=== PATIENT | male | born 1945 | race Caucasian/White ===

== ENCOUNTER 2017-10-28 09:47 | Day surgery (SDC) | payer OTHER ==
--- NOTE | 2017-10-28 10:22 | PDHPUP ---
History & Physical Update H&P update statement: This history and physical update is based on an assessment of the patient which was completed after admission or registration (within 24 hours), but prior to the surgery/procedure. H&P update: no change in patient's condition since H&P completed
[2017-10-28] MEDS ORDERED: levOFLOXACIN 500 MG/DEXTROSE 100 ML IV ONE (10:57)
[2017-10-28] MEDS ORDERED: LR 1,000 ML IV ONE (11:14)
--- NOTE | 2017-10-28 11:30 | PDANEPAE ---
ANE History of Present Illness green light laser ANE Past Medical History - Cardiovascular History Hx Hypertension: No Hx Arrhythmias: Yes Hx Coronary Artery / Peripheral Vascular Disease: Yes Hx CHF / Valvular Disease: No Hx Palpitations: No Cardiovascular History Comment: Atrial fib, bradycardia, aortic aneurysm, hyperlipidemia - Pulmonary History Hx COPD: No Hx Asthma/Reactive Airway Disease: No Hx Recent Upper Respiratory Infection: No Hx Oxygen in Use at Home: Yes O2 in Use at Home (L/minute): 2L/NC Hx Sleep Apnea: Yes Sleep Apnea Screening Result - Last Documented: Positive Pulmonary History Comment: Sleep Hypoxia, - Neurologic History Hx Cerebrovascular Accident: No Hx Seizures: No Hx Dementia: No - Endocrine History Hx Diabetes: No Endocrine History Comment: thyroid Bx 2010-benign - Renal History Hx Renal Disorders: Yes Renal History Comment: BPH. UTI 08/2017 - Liver History Hx Hepatic Disorders: No - Neurological & Psychiatric Hx Hx Neurological and Psychiatric Disorders: No - Cancer History Hx Cancer: Yes Cancer History Comment: basel carcinoma - Congenital Disorder History Hx Congenital Disorders: No - GI History Hx Gastrointestinal Disorders: No Gastrointestinal History Comment: C-diff 08/2017 - Chronic Pain History Chronic Pain: No - Surgical History Prior Surgeries: angiogram. pacemaker 2014. sinus surgery. 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[email or web address] Pacemaker Model: [id number] Date Pacemaker Last Checked: 09/14/2017 ANE Patient History - Allergies Allergies/Adverse Reactions: clindamycin Allergy (Verified 01/24/15 07:58) Lincosamids Allergy (Uncoded 01/24/15 07:59) - Home Medications Home Medications: Crestor 10 mg 10/05/17 [Last Taken Unknown] Eliquis 5 mg 10/05/17 [Last Taken Unknown] Finasteride 5 mg 10/05/17 [Last Taken Unknown] - NPO status NPO Since - Liquids (Date): 10/27/17 NPO Since - Liquids (Time): 23:00 NPO Since - Solids (Date): 10/27/17 NPO Since - Solids (Time): 22:00 - Anes Hx Anes Hx: no prior problems - Smoking Hx Smoking Status: Never smoked - Alcohol Use Alcohol Use: Rarely - Family Anes Hx Family Anes Hx: none Family Hx Anesthesia Complications: none ANE Labs/Vital Signs - Vital Signs Blood Pressure: 117/77 Heart Rate: 73 Respiratory Rate: 14 O2 Sat (%): 93 Height: 177.8 cm Weight: 85.275 kg ANE Physical Exam - Airway Neck exam: FROM Mallampati Score: Class 2 Mouth exam: normal dental/mouth exam - Pulmonary Pulmonary: no respiratory distress, clear to auscultation - Cardiovascular Cardiovascular: regular rate and rhythym, no murmur, rub, or gallop - ASA Status ASA Status: III ANE Anesthesia Plan Anesthesia Plan: GA w LMA
[2017-10-28] MEDS ORDERED: PROPOFOL 200 MG/20 ML VIAL ONE (11:51)
[2017-10-28] MEDS ORDERED: fentaNYL 100 MCG/2 ML INJ ONE ×3 (11:51→14:13)
[2017-10-28] MEDS ORDERED: LIDOCAINE 2% 100 MG/5 ML SYR ONE (11:53)
[2017-10-28] MEDS ORDERED: PHENYLEPHRINE HCL 100 MCG/ML SYR ONE (13:00)
[2017-10-28] MEDS ORDERED: ONDANSETRON 4 MG/2 ML VIAL IVP PRN (13:34)
[2017-10-28] MEDS ORDERED: NALOXONE HCL 0.4 MG/ML INJ IVP PRN (13:34)
[2017-10-28] MEDS ORDERED: ACETAMINOPHEN 500 MG TAB PO PRN (13:34)
--- NOTE | 2017-10-28 13:34 | POSTANESTH ---
Post Anesthetic Evaluation Cardiovascular Status: Normal, Stable, Similar to Pre-Op Cond Respiratory Status: Normal, Stable, Similar to Pre-op Cond. Level of Consciousness/Mental Status: Can Participate in Eval, Alert and Oriented Pain Control: Adequate, Prn Tx Ordered Nausea/Vomiting Control: Adequate, Prn Tx Ordered Complications Possibly Related to Anesthesia: None Noted
--- NOTE | 2017-10-28 13:39 | POSTOPPROG ---
Post Op Note Date of Operation: 10/28/17 Surgeon: Steph Garcia (# [id number]) Anesthesia: LMA Pre-op Diagnosis: BPH w/ obstruction Post-op Diagnosis: BPH w/ obstruction Procedure: Greenlight PVP Findings: See op note Inf/Abcess present in the surg proc area at time of surgery?: No EBL: Minimal Complications: None Specimen(s): None Text Box - Additional Text Additional Text: LASING TIME - 32 mins 24 sec TOTAL ENERGY USED - 184,514 joules
[2017-10-28] MEDS: fentaNYL 100 MCG/2 ML INJ IVP PRN ×4 (13:43→14:14)
[2017-10-28 13:56] VITALS: PULSE 66; TEMP 97.9
--- NOTE | 2017-10-28 14:08 | GOP ---
[f rep st] OPERATIVE REPORT DATE OF OPERATION: 10/28/2017 SURGEON: Steph Garcia MD ANESTHESIA: Laryngeal mask. PREOPERATIVE DIAGNOSIS: Benign prostatic hypertrophy with urinary obstruction. POSTOPERATIVE DIAGNOSIS: Benign prostatic hypertrophy with urinary obstruction. PROCEDURE PERFORMED: Photovaporization of prostate. FINDINGS: BPH with obstruction. LASING TIME: To be completed, number of minutes. TOTAL ENERGY USED: To be completed, number of joules. SPECIMENS: None. ESTIMATED BLOOD LOSS: Minimal. INDICATIONS: This gentleman has a longstanding history of urinary tract symptoms that are refractory to medical therapy. He presents for operative management at this time. The indications for the pro cedures as well as potential risks and complications were discussed with the patient preoperatively. He appeared to understand, his questions were answered, and he wished to proceed. Written informed surgical consent was thereafter obtained. DESCRIPTION OF PROCEDURE: The patient was brought to the operating room, administered laryngeal mask anesthesia. He was carefully placed in the dorsal lithotomy position on the cystoscopic table. The genital area was sterilely prepped with Betadine scrub and paint, then draped in the usual sterile f ashion. It should be mentioned that with this patient, precautions were taken due to recent Clostrid ium difficile infection. I began the procedure with a 30-degree lens, using the GreenLight XPS Laser bridge and a 26-[place] sh eath. Anterior urethra was gently dilated with Adela sounds up to 28-[place] before inserting the instruments. The remainder of the anterior urethra was unremarkable. Posterior urethra revealed mo derate circumferential BPH with a small median lobe. The bladder was moderately to heavily trabecula darlene. Ureteral orifices were normal in regard to shape and position along the trigone. Full cystosco py was previously performed in the office and was not repeated here today. The GreenLight XPS fiber was then brought onto the field. Using passive continuous low with normal s loree, began vaporization of prostate to the level of bladder neck with 60 bansal of energy. This was the energy setting used to paint the prostatic mucosa from the level of the bladder neck back toward the verumontanum. I then increased the energy setting to 100 bansal of energy, which was the energy setting used to vaporize a majority of the prostate. I vaporized until capsular fibers were approxim ated circumferentially. At the conclusion of the procedure, the prostatic fossa was widely patent, u reteral orifices were well-preserved, and no vaporization had taken place distal to the verumontanum. Visualization throughout the case was excellent. The instruments were then removed and a 20-[place], 3-way Reed catheter inserted with the use of a ca theter guide. 35 cc of sterile fluid was placed in the balloon. The catheter irrigated manually and the return was light pink. The catheter was connected to bag drainage as well as continuous normal saline irrigation. The patient was then awakened, transferred to his bed, [facility] He tolerated the procedure well overall. COMPLICATIONS: None. DISPOSITION: He was transferred to the recovery room in stable condition. He will be discharged onc e meeting standard recovery criteria after stopping CBI. He will be instructed to remove his Reed o n Wednesday. /[id number]/MODL
[2017-10-28] MEDS ORDERED: ACETAMINOPHEN 500 MG TAB ONE (14:12)
[2017-10-28 15:52] VITALS: BP 123/77; RESP 15; O2SAT 96
== END 2017-10-28 15:50 | disposition home or self-care (01) ==
LOC: FSGY 09:47
PROVIDERS: ATTEND Specialist
PROC: 0V508ZZ Destruction of Prostate, Via Natural or Artificial Opening Endoscopic (ICD-10-PCS; principal; 2017-10-28 11:15)
DX: N40.1 Benign prostatic hyperplasia with lower urinary tract symptoms (principal); R35.1 Nocturia; R35.0 Frequency of micturition; R33.9 Retention of urine, unspecified; N52.9 Male erectile dysfunction, unspecified; I71.2 Thoracic aortic aneurysm, without rupture; E78.5 Hyperlipidemia, unspecified; I48.91 Unspecified atrial fibrillation; I49.5 Sick sinus syndrome; G47.33 Obstructive sleep apnea (adult) (pediatric); Z79.01 Long term (current) use of anticoagulants; Z82.3 Family history of stroke; Z82.49 Family history of ischemic heart disease and other diseases of the circulatory system; Z95.0 Presence of cardiac pacemaker
CPT/HCPCS: J1956; J2001; J2370; J2704; J3010

== ENCOUNTER 2018-06-01 08:44 | Day surgery (SDC) | payer OTHER ==
[2018-06-01] MEDS ORDERED: LR 1,000 ML IV ONE (09:05)
[2018-06-01] MEDS ORDERED: LR 500 ML IV PRN (10:06)
[2018-06-01] MEDS ORDERED: NALOXONE HCL 0.4 MG/ML INJ IVP PRN (10:06)
[2018-06-01] MEDS ORDERED: fentaNYL 100 MCG/2 ML INJ IVP PRN (10:06)
[2018-06-01] MEDS ORDERED: ALBUTEROL 3 ML DEYVIAL IH PRN (10:06)
[2018-06-01] MEDS ORDERED: ONDANSETRON 4 MG/2 ML VIAL IVP PRN (10:06)
--- NOTE | 2018-06-01 10:06 | PDANEPAE ---
ANE Past Medical History - Cardiovascular History Hx Hypertension: No Hx Arrhythmias: Yes Hx Coronary Artery / Peripheral Vascular Disease: Yes Hx CHF / Valvular Disease: No Hx Palpitations: No Cardiovascular History Comment: Atrial fib, bradycardia, aortic aneurysm, hyperlipidemia - Pulmonary History Hx COPD: No Hx Asthma/Reactive Airway Disease: No Hx Recent Upper Respiratory Infection: No Hx Sleep Apnea: Yes Pulmonary History Comment: Sleep Hypoxia, - Neurologic History Hx Cerebrovascular Accident: No Hx Seizures: No Hx Dementia: No - Endocrine History Hx Diabetes: No Endocrine History Comment: thyroid Bx 2010-benign - Renal History Hx Renal Disorders: Yes Renal History Comment: BPH. UTI 08/2017 - Liver History Hx Hepatic Disorders: No - Neurological & Psychiatric Hx Hx Neurological and Psychiatric Disorders: No - Cancer History Hx Cancer: Yes Cancer History Comment: basel carcinoma - Congenital Disorder History Hx Congenital Disorders: No - GI History Hx Gastrointestinal Disorders: No Gastrointestinal History Comment: C-diff 08/2017 - Chronic Pain History Chronic Pain: No - Surgical History Prior Surgeries: angiogram. pacemaker 2014. sinus surgery. tonsillectomy ANE Review of Systems Review of Systems: ANE Patient History - Allergies Allergies/Adverse Reactions: clindamycin Allergy (Verified 06/01/18 09:25) swelling Lincosamids Allergy (Uncoded 06/01/18 09:25) swelling - Home Medications Home Medications: Crestor 10 mg 10/05/17 [Last Taken 05/31/18] Vancomycin 10/28/17 [Last Taken 12/02/17] Eliquis 06/01/18 [Last Taken 05/29/18] - NPO status NPO Since - Liquids (Date): 05/31/18 NPO Since - Liquids (Time): 22:00 NPO Since - Solids (Date): 05/31/18 NPO Since - Solids (Time): 09:00 - Smoking Hx Smoking Status: Never smoked - Family Anes Hx Family Hx Anesthesia Complications: none ANE Labs/Vital Signs - Vital Signs Blood Pressure: 100/73 Heart Rate: 101 Respiratory Rate: 14 O2 Sat (%): 15 Height: 177.8 cm Weight: 86.183 kg ANE Physical Exam - Airway Neck exam: decreased ROM Mallampati Score: Class 2 Mouth exam: normal dental/mouth exam - Pulmonary Pulmonary: no respiratory distress, no rales or rhonchi, clear to auscultation - Cardiovascular Cardiovascular: regular rate and rhythym, no murmur, rub, or gallop, pulses symmetric bilaterally - ASA Status ASA Status: III ANE Anesthesia Plan Anesthesia Plan: GA with mask
[2018-06-01] MEDS ORDERED: PROPOFOL 200 MG/20 ML VIAL ONE (10:07)
--- NOTE | 2018-06-01 10:17 | PDGENHP ---
History and Physical - Chief Complaint Screening colonoscopy - History of Present Illness 72 yo male here for screening colonoscopy. Last exam ten years ago. History Information - Allergies/Home Medication List Allergies/Adverse Reactions: clindamycin Allergy (Verified 06/01/18 09:25) swelling Lincosamids Allergy (Uncoded 06/01/18 09:25) swelling Home Medications: Crestor 10 mg 10/05/17 [Last Taken 05/31/18] Vancomycin 10/28/17 [Last Taken 12/02/17] Eliquis 06/01/18 [Last Taken 05/29/18] I have personally reviewed and updated: family history, medical history, social history, surgical history - Past Medical History coronary artery disease, COPD Additional medical history: Sleep apnea. - Surgical History Reports: no pertinent surgical hx - Family History Positive for: non-pertinent - Social History Smoking Status: Never smoked Review of Systems Review of Systems: ROS: 10pt was reviewed & negative except for what was stated in HPI & below Physical Exam Physical Exam: Temp Pulse Resp BP Pulse Ox 36.5 C 101 H 14 100/73 15 L 06/01/18 09:23 06/01/18 10:05 06/01/18 10:05 06/01/18 10:05 06/01/18 10:05 Constitutional: no apparent distress, appears nourished Cardiovascular: regular rate and rhythym, no murmur, rub, or gallop Respiratory: no respiratory distress, no rales or rhonchi, clear to auscultation Gastrointestinal: normoactive bowel sounds, soft, non-tender abdomen, no palpable masses Skin: warm, normal color Neurologic: AAOx3, sensation intact bilaterally Assessment & Plan Assessment: Screening colonoscopy in patient with ASCVD and COPD/sleep apnea. Plan: Screening colonoscopy.
--- NOTE | 2018-06-01 10:50 | GIREPORT ---
[facility] [place] Surgical Services - Endoscopy Department Patient Name: Raoul Pearson Procedure Date: 06/01/2018 10:08 AM Patient Type: Outpatient Attending MD/ ER Physician: Tim Crouch MD Procedure: Colonoscopy Indications: Screening for colorectal malignant neoplasm Providers: Tim Crouch MD Medicines: Propofol per Anesthesia Complications: No immediate complications. Description of Procedure: After obtaining informed consent, the scope was passed under direct vis ion. Throughout the procedure, the patient's blood pressure, pulse, and oxyg en saturations were monitored continuously. The Colonoscope was introduced through the anus and advanced to the terminal ileum. The colonoscopy wa s performed without difficulty. The patient tolerated the procedure well. The quality of the bowel preparation was excellent. Findings: The terminal ileum appeared normal. The colon (entire examined portion) appeared normal. The perianal and digital rectal examinations were normal. Estimated Blood Loss: Estimated blood loss: none. Post Op Diagnosis: - The examined portion of the ileum was normal. - The entire examined colon is normal. - No specimens collected. Recommendation: - Discharge patient to home (with escort). - Patient has a contact number available for emergencies. The signs and symptoms of potential delayed complications were discussed with the pat ient. Return to normal activities tomorrow. Written discharge instructions we re provided to the patient. - Advance diet as tolerated today. - Continue present medications. - Resume Eliquis (apixaban) at prior dose today. Refer to managing phys ician for further adjustment of therapy. - Repeat colonoscopy in 10 years for screening purposes if concurrent h ealth issues permit. - The findings and recommendations were discussed with the patient. Attending Participation: I personally performed the entire procedure. Tim Crouch MD Tim Crouch MD 06/01/2018 10:50:16 AM This report has been signed electronicallyTim Crouch MD Number of Addenda: 0 Note Initiated On: 06/01/2018 10:08 AM Total Procedure Duration Time 0 hours 21 minutes 53 seconds [email or web address]
--- NOTE | 2018-06-01 11:27 | POSTANESTH ---
Post Anesthetic Evaluation Cardiovascular Status: Normal, Stable, Similar to Pre-Op Cond Respiratory Status: Normal, Stable, Similar to Pre-op Cond. Level of Consciousness/Mental Status: Moderately Sleepy Pain Control: Adequate, Prn Tx Ordered Nausea/Vomiting Control: Adequate, Prn Tx Ordered Complications Possibly Related to Anesthesia: None Noted
[2018-06-01 11:38] VITALS: BP 117/79
== END 2018-06-01 12:10 | disposition home or self-care (01) ==
LOC: FSGY 08:44
PROVIDERS: ATTEND Internal Medicine Gastroenterology
PROC: 0DJD8ZZ Inspection of Lower Intestinal Tract, Via Natural or Artificial Opening Endoscopic (ICD-10-PCS; principal; 2018-06-01 10:15)
DX: Z12.11 Encounter for screening for malignant neoplasm of colon (principal)
CPT/HCPCS: J2704